=== PATIENT | female | born 1955 | race Caucasian/White ===

== ENCOUNTER 2018-09-14 16:04 | Inpatient (IN) | payer MEDICARE, MEDICAID ==
[~2018-09-14] VITALS: Ht 139.7 cm; Wt 56.2 kg
--- NOTE | 2018-09-14 18:59 | NUR ---
114/61, 103 pulse, 98.1, 21 respirations, 94% on room air, arrived on unit at 1815 via [facility] and [place], denies pain at this time, no signs of distress noted, call light placed in reach, MRSA swab collected at this time, will endorse admission to [employer] operator nurse
[2018-09-14] MEDS ORDERED: Z GUARD REMEDY PASTE 57 GM TUBE TOP PRN (19:00)
[2018-09-14 19:25] VITALS: BP 114/61
[2018-09-14] MEDS ORDERED: LEVO75TA7 PO (20:02)
[2018-09-14] MEDS ORDERED: BENZ1LOZ58 MM (20:02)
[2018-09-14] MEDS ORDERED: CHOL100043 PO (20:02)
[2018-09-14] MEDS ORDERED: ENOX40DI SQ (20:02)
[2018-09-14] MEDS ORDERED: ACET-2154 PO (20:02)
[2018-09-14] MEDS ORDERED: IPRA0.2S6 NEB ×2 (20:02)
[2018-09-14] MEDS ORDERED: BENA10TA9 PO (20:02)
[2018-09-14] MEDS ORDERED: ASPI81TA31 PO (20:02)
[2018-09-14] MEDS ORDERED: ATOR20TA PO (20:02)
[2018-09-14] MEDS ORDERED: PANT40TA2 PO (20:02)
[2018-09-14] MEDS ORDERED: ALBU2.5V13 IH ×2 (20:02)
[2018-09-14] MEDS ORDERED: FLUT1BLS IH (20:02)
[2018-09-14] MEDS ORDERED: DIPH25CA83 PO (20:02)
[2018-09-14] MEDS ORDERED: MAGN400O6 PO (20:02)
[2018-09-14] MEDS ORDERED: SERT25TA PO (20:02)
[2018-09-14] MEDS ORDERED: LINA5TAB PO (20:02)
[2018-09-14] MEDS ORDERED: CALC-494 PO (20:02)
[2018-09-14] MEDS ORDERED: METF-494 PO (20:02)
[2018-09-14] MEDS ORDERED: GLUC1KIT IJ (20:02)
[2018-09-14] MEDS ORDERED: LOPE2CAP40 PO (20:02)
--- NOTE | 2018-09-14 20:05 | NUR ---
Dr. Serrano notified for med recon. verbalized that he will complete it.
[2018-09-14] MEDS ORDERED: DEXTROSE 50% 50 ML DISP.SYRIN IV PRN (20:15)
[2018-09-14 20:20] VITALS: BP 107/57
[2018-09-14] MEDS: BLOOD SUGAR DIAGNOSTIC 1 EACH STRIP VI SCH (21:34)
--- NOTE | 2018-09-14 22:31 | NUR ---
Admitting this 63 y/o female from [facility] under the care of [facility]. Arrived in unit at 1815. Received pt in bed, AAO x 4 watching television. No acute distress noted. Verbally responsive and able to make needs known. Denies pain or discomfort, SOB, CP, N/V. BS checked noted to be 113. Dr. Serrano notified of pt arrival and for med recon to be completed, per MD, will complete via computer. Dr. Daigle made aware of pt arrival. VSS. Routine admission care done. Pictures taken and placed in chart. Belongings list completed. MRSA swab done by AM nurse, swab sent to lab. All safety measures and fall precautions maintained. Call light and all personal belongings within reach. Addendum: 09/14/18 at 2309 by Mart Penaloza RN Will continue to monitor.
[2018-09-14] MEDS ORDERED: LOPERAMIDE HCL 2 MG CAPSULE PO PRN (22:45)
[2018-09-14] MEDS ORDERED: Medication Not On Formulary EA (Diphenhydramine Hcl (Benadryl) 25 MG) PO SCH (22:45)
[2018-09-14] MEDS ORDERED: MAGNESIUM HYDROXIDE 30 ML LIQUID UDC PO PRN (22:45)
[2018-09-15] MEDS: IPRATROPIUM BROMIDE 0.5 MG/2.5 ML NEBU NEB PRN ×2 (01:55→22:19)
[2018-09-15] MEDS: ALBUTEROL SULFATE 2.5 MG/ 0.5 ML NEBU IH PRN (01:56)
[2018-09-15 06:09] VITALS: BP 110/55
[2018-09-15] MEDS: PANTOPRAZOLE SODIUM 40 MG TABLET.DR PO SCH (06:49)
[2018-09-15] MEDS: LEVOTHYROXINE SODIUM 75 MCG TABLET PO SCH (06:50)
[2018-09-15] MEDS: BLOOD SUGAR DIAGNOSTIC 1 EACH STRIP VI SCH ×4 (06:55→20:32)
[2018-09-15 07:15] VITALS: BP 137/67
[2018-09-15] MEDS ORDERED: diphenhydrAMINE 25 MG CAP PO PRN (07:30)
[2018-09-15] MEDS: ALBUTEROL SULFATE 2.5 MG/ 0.5 ML NEBU IH SCH ×5 (07:34→22:20)
[2018-09-15] MEDS: IPRATROPIUM BROMIDE 0.5 MG/2.5 ML NEBU NEB SCH ×4 (07:34→19:56)
[2018-09-15] MEDS ORDERED: FLUTICASONE/VILANTEROL 1 EACH BLST.W.DEV IH SCH (09:00)
[2018-09-15] MEDS ORDERED: Medication Not On Formulary EA (Sertraline Hcl (Zoloft) 12.5 MG) PO SCH (09:00)
[2018-09-15] MEDS: CHOLECALCIFEROL 1,000 UNIT TABLET PO SCH (09:32)
[2018-09-15] MEDS: ASPIRIN 81 MG TAB.CHEW PO SCH (09:32)
[2018-09-15] MEDS: SERTRALINE HCL 50 MG TABLET PO SCH (09:32)
[2018-09-15] MEDS: LINAGLIPTIN 5 MG TABLET PO SCH (09:32)
[2018-09-15] MEDS: BENAZEPRIL HCL 10 MG TABLET PO SCH (09:33)
[2018-09-15] MEDS: FLUTICASONE/VILANTEROL 1 EACH BLST.W.DEV IH SCH (11:38)
[2018-09-15] MEDS: INSULIN REGULAR, HUMAN 300 UNIT/3 ML VIAL SQ PRN ×2 (11:41→16:45)
[2018-09-15] MEDS ORDERED: METF-440 PO (12:36)
--- NOTE | 2018-09-15 14:10 | NUR ---
Received patient, awake, alert x4. Not in any form of distress. With occasional SOB on activity but sating well. Able to ambulate to bathroom. No pain noted. No S/S of hypoglycemia noted. Tolerated diet and medications well.
--- NOTE | 2018-09-15 14:10 | NUR ---
Up with occupational therapy, tolerating well. On room air, tolerating well. No pain noted.
[2018-09-15 15:58] VITALS: BP 93/45
[2018-09-15] MEDS: METFORMIN HCL 500 MG TABLET PO SCH (17:35)
[2018-09-15 19:54] VITALS: BP 95/53
[2018-09-15] MEDS: ATORVASTATIN 20 MG TABLET PO SCH (20:32)
[2018-09-15] MEDS: ENOXAPARIN SODIUM 40 MG/0.4 ML DISP.SYRIN SQ SCH (20:32)
[2018-09-16 06:06] VITALS: BP 135/60
[2018-09-16] MEDS: BLOOD SUGAR DIAGNOSTIC 1 EACH STRIP VI SCH (06:48)
[2018-09-16] MEDS: PANTOPRAZOLE SODIUM 40 MG TABLET.DR PO SCH (06:48)
[2018-09-16] MEDS: LEVOTHYROXINE SODIUM 75 MCG TABLET PO SCH (06:48)
[2018-09-16] MEDS: IPRATROPIUM BROMIDE 0.5 MG/2.5 ML NEBU NEB SCH ×4 (07:15→19:10)
[2018-09-16] MEDS: ALBUTEROL SULFATE 2.5 MG/ 0.5 ML NEBU IH SCH ×4 (07:15→19:10)
[2018-09-16 08:10] VITALS: BP 134/77
--- NOTE | 2018-09-16 09:00 | NUR ---
Received patient awake, alert x 4. On room air, sating well. No SOB or chest pains. No pain noted. No S/S of hypoglycemia. Tolerated diet and medications well.
[2018-09-16] MEDS: LINAGLIPTIN 5 MG TABLET PO SCH (09:18)
[2018-09-16] MEDS: METFORMIN HCL 500 MG TABLET PO SCH ×2 (09:18→17:49)
[2018-09-16] MEDS: CHOLECALCIFEROL 1,000 UNIT TABLET PO SCH (09:18)
[2018-09-16] MEDS: FLUTICASONE/VILANTEROL 1 EACH BLST.W.DEV IH SCH (09:18)
[2018-09-16] MEDS: ASPIRIN 81 MG TAB.CHEW PO SCH (09:18)
[2018-09-16] MEDS: BENAZEPRIL HCL 10 MG TABLET PO SCH (09:19)
[2018-09-16] MEDS: SERTRALINE HCL 50 MG TABLET PO SCH (09:19)
--- NOTE | 2018-09-16 10:36 | NUR ---
Patient up with physical therapy, able to ambulate with front wheel walker. No pain noted. With occasional SOB but sating well above 90s. Seen and examined by Dr. Baugh mentioned to about stable blood sugar levels and said we can d/c Accu-checks
--- NOTE | 2018-09-16 15:26 | NUR ---
INTERDISCIPLINARY TEAM CONFERENCE
[2018-09-16 17:47] VITALS: BP 95/56
--- NOTE | 2018-09-16 19:45 | NUR ---
Patient received in bed. AAO x4. No acute distress or SOB was noted. Able to make needs known. On room air. No complain of pain at this time. Patient assessed. Safety measures maintained, Fall precaution observed, Bed in low position, brake and alarm on, side rails up x2 for safety. Call light and personal belongings within reach. Continue to monitor.
[2018-09-16 21:00] VITALS: BP 112/60
[2018-09-16] MEDS: ATORVASTATIN 20 MG TABLET PO SCH (21:06)
[2018-09-16] MEDS: ENOXAPARIN SODIUM 40 MG/0.4 ML DISP.SYRIN SQ SCH (21:07)
--- NOTE | 2018-09-17 05:20 | NUR ---
End of the shift note Patient was stable throughout the shift and had a good sleep last night. No acute distress or SOB was noted. On room air. No Complain of pain. All due medication given as ordered and well tolerated. Patient assessed. All needs attended promptly. Safety measures maintained, Fall precaution observed, Bed in low position, brake and alarm on, side rails up x2 for safety. Call light and personal belongings within reach. Continue to monitor and will endorse to the oncoming day shift nurse accordingly.
[2018-09-17] MEDS: PANTOPRAZOLE SODIUM 40 MG TABLET.DR PO SCH (06:02)
[2018-09-17] MEDS: LEVOTHYROXINE SODIUM 75 MCG TABLET PO SCH (06:02)
[2018-09-17 06:36] VITALS: BP 95/51
[2018-09-17] MEDS: ALBUTEROL SULFATE 2.5 MG/ 0.5 ML NEBU IH SCH ×4 (07:09→21:08)
[2018-09-17] MEDS: IPRATROPIUM BROMIDE 0.5 MG/2.5 ML NEBU NEB SCH ×4 (07:09→21:08)
[2018-09-17 07:15] VITALS: BP 116/51
[2018-09-17] MEDS: CHOLECALCIFEROL 1,000 UNIT TABLET PO SCH (09:04)
[2018-09-17] MEDS: LINAGLIPTIN 5 MG TABLET PO SCH (09:05)
[2018-09-17] MEDS: SERTRALINE HCL 50 MG TABLET PO SCH (09:05)
[2018-09-17] MEDS: METFORMIN HCL 500 MG TABLET PO SCH (09:05)
[2018-09-17] MEDS: ASPIRIN 81 MG TAB.CHEW PO SCH (09:06)
[2018-09-17] MEDS: BENAZEPRIL HCL 10 MG TABLET PO SCH (09:06)
[2018-09-17] MEDS: FLUTICASONE/VILANTEROL 1 EACH BLST.W.DEV IH SCH (09:08)
--- NOTE | 2018-09-17 12:25 | NUR ---
MD Jones informed regarding discontinue of metformin and tradjenta due to discontinue steroids. Lotensin 10mg also discontinue. agreed.
--- NOTE | 2018-09-17 12:42 | NUR ---
BP medication lotensin discontinue due to low BP. MD aware. will continue monitor
[2018-09-17 16:10] VITALS: BP 96/57
--- NOTE | 2018-09-17 20:02 | NUR ---
resting in bed upon initial rounds. watching TV. in good spirits. needs attended. compliant with care and meds. denies any pain nor any discomfort. VSS. ambulates to the BR with walker with supervision. voiding well. will monitor patient.
[2018-09-17 20:13] VITALS: BP 100/59
[2018-09-17] MEDS: ATORVASTATIN 20 MG TABLET PO SCH (20:26)
[2018-09-17] MEDS: ENOXAPARIN SODIUM 40 MG/0.4 ML DISP.SYRIN SQ SCH (20:29)
[2018-09-18 04:53] VITALS: BP 106/54
[2018-09-18] MEDS: PANTOPRAZOLE SODIUM 40 MG TABLET.DR PO SCH (06:14)
[2018-09-18] MEDS: LEVOTHYROXINE SODIUM 75 MCG TABLET PO SCH (06:14)
--- NOTE | 2018-09-18 06:15 | NUR ---
quiet night. slept well. no acute distress noted. will monitor patient. ambulates to the BR with walker. voiding ok. no BM this shift. VSS. compliant with meds. no complaints presented during shift.
[2018-09-18] MEDS: IPRATROPIUM BROMIDE 0.5 MG/2.5 ML NEBU NEB SCH ×4 (08:02→20:00)
[2018-09-18] MEDS: ALBUTEROL SULFATE 2.5 MG/ 0.5 ML NEBU IH SCH ×4 (08:02→20:00)
[2018-09-18 08:34] VITALS: BP 112/52
[2018-09-18] MEDS: CHOLECALCIFEROL 1,000 UNIT TABLET PO SCH (08:44)
[2018-09-18] MEDS: ASPIRIN 81 MG TAB.CHEW PO SCH (08:45)
[2018-09-18] MEDS: SERTRALINE HCL 50 MG TABLET PO SCH (08:45)
[2018-09-18] MEDS: FLUTICASONE/VILANTEROL 1 EACH BLST.W.DEV IH SCH (08:46)
--- NOTE | 2018-09-18 09:59 | NUR ---
Received pt. on bed, comfortable in no distress. A/OX4 and able to make her needs known. Denies CP or SOB, on RA tolerating well with 92% SpO2. All due medications administered as ordered and tolerated well. All pt. needs attended and met promptly. Safety measures in place. Call light and all frequently used items within pt. reach.
[2018-09-18 16:36] VITALS: BP 122/68
--- NOTE | 2018-09-18 18:41 | NUR ---
End of shift note: No significant change during this shift. All due medications administered as ordered and tolerated well. No sign of acute distress or SOB was noted. LKept pt clean and dry throughout this shift. Safety measures maintained. All needs attended and met promptly. Bed in low position, brake on, side rails up x2 as an enabler. Call light and all frequently used items within pt. reach. Will endorse to next shift accordingly
[2018-09-18 20:10] VITALS: BP 129/73
[2018-09-18] MEDS: ENOXAPARIN SODIUM 40 MG/0.4 ML DISP.SYRIN SQ SCH (20:36)
[2018-09-18] MEDS: ATORVASTATIN 20 MG TABLET PO SCH (20:36)
--- NOTE | 2018-09-18 20:51 | NUR ---
Received pt in bed, AAO x 4 watching television. No acute distress noted. Denies pain or discomfort. Verbally responsive and able to make needs known. Noted with left arm previously present (on admission) scabs that were, per patient, "scratched off without her realizing it." No active bleeding noted. Cleansed with NS, pat dry and two band-aid applied to wounds. Denies pain at site. All safety measures and fall precautions maintained. Call light and all personal belongings within reach. Will continue to monitor. Addendum: 09/18/18 at 2102 by Mart Penaloza RN Picture taken and placed in chart.
[2018-09-19 05:56] VITALS: BP 111/70
[2018-09-19] MEDS: PANTOPRAZOLE SODIUM 40 MG TABLET.DR PO SCH (06:39)
[2018-09-19] MEDS: LEVOTHYROXINE SODIUM 75 MCG TABLET PO SCH (06:39)
[2018-09-19] MEDS: IPRATROPIUM BROMIDE 0.5 MG/2.5 ML NEBU NEB SCH ×4 (07:06→19:48)
[2018-09-19] MEDS: ALBUTEROL SULFATE 2.5 MG/ 0.5 ML NEBU IH SCH ×4 (07:06→19:48)
[2018-09-19 08:27] VITALS: BP 122/56
[2018-09-19] MEDS: ASPIRIN 81 MG TAB.CHEW PO SCH (08:42)
[2018-09-19] MEDS: SERTRALINE HCL 50 MG TABLET PO SCH (08:43)
[2018-09-19] MEDS: CHOLECALCIFEROL 1,000 UNIT TABLET PO SCH (08:43)
[2018-09-19] MEDS: FLUTICASONE/VILANTEROL 1 EACH BLST.W.DEV IH SCH (08:48)
[2018-09-19 16:09] VITALS: BP 119/81
--- NOTE | 2018-09-19 18:33 | NUR ---
Received patient awake in bed in stable condition. no complaint of pain/discomfort noted. not in distress. will continue monitor
--- NOTE | 2018-09-19 19:29 | NUR ---
MD Dawn ordered EKG for tomorrow for tachycardia.
[2018-09-19 19:46] VITALS: BP 136/72
[2018-09-19] MEDS: ATORVASTATIN 20 MG TABLET PO SCH (20:28)
[2018-09-19] MEDS: ENOXAPARIN SODIUM 40 MG/0.4 ML DISP.SYRIN SQ SCH (20:29)
--- NOTE | 2018-09-19 20:35 | NUR ---
Patient has a heart rate ranging from 100 to 110. Patient remained asymptomatic. Checked pulse rate manually, it was 98-100. Based on her order from morning, she had ECG. The result indicated normal sinus rhythm, HR:97, Right bundle branch block. Contacted [facility] on-call. Dr. Bhavani Du was informed. She stated no new order. Continue to monitor.
[2018-09-19] MEDS: IPRATROPIUM BROMIDE 0.5 MG/2.5 ML NEBU NEB PRN (22:59)
[2018-09-19] MEDS: ALBUTEROL SULFATE 2.5 MG/ 0.5 ML NEBU IH PRN (22:59)
[2018-09-20] MEDS: PANTOPRAZOLE SODIUM 40 MG TABLET.DR PO SCH (06:19)
[2018-09-20] MEDS: LEVOTHYROXINE SODIUM 75 MCG TABLET PO SCH (06:20)
[2018-09-20 06:22] VITALS: BP 116/65
[2018-09-20 06:48] LABS: BASOPHILS % (AUTO) 0.6 % (0.0-2.0); EOSINOPHILS # (AUTO) 0.1 K/uL (0.0-0.7); EOSINOPHILS % (AUTO) 1.8 % (0.0-7.0); HEMATOCRIT 28.8 % (31.2-41.9); LYMPHOCYTES # (AUTO) 1.9 K/uL (20.0-40.0); LYMPHOCYTES % (AUTO) 22.5 % (20.5-51.5); MEAN CORPUSCULAR HEMOGLOBIN 22.8 uug (24.7-32.8); MEAN CORPUSCULAR HGB CONC 31 g/dL (32.3-35.6); MEAN CORPUSCULAR VOLUME 73.4 fL (75.5-95.3); MONOCYTES # (AUTO) 1.2 K/uL (2.0-10.0); NEUTROPHILS # (AUTO) 5.1 K/uL (1.8-8.9); NEUTROPHILS % (AUTO) 61.1 % (38.5-71.5); PLATELET COUNT (AUTO) 477 K/uL (179-408); RED BLOOD CELL COUNT(AUTO) 3.93 MIL/uL (3.63-4.92); WHITE BLOOD COUNT (AUTO) 8.3 K/uL (3.8-11.8)
[2018-09-20 06:54] LABS: CREATININE 0.7 mg/dL (0.6-1.3); MAGNESIUM 2.1 mg/dL (1.8-2.4); PHOSPHOROUS 3.6 mg/dL (2.5-4.9); POTASSIUM 3.9 mmol/L (3.5-5.1)
--- NOTE | 2018-09-20 07:10 | NUR ---
Received patient awake, alert and oriented, in bed on a high shields's position, no SOB or distress. Denies any pain or discomforts at this time. Safety precautions initiated. call light and telephone within reach. Encouraged to use call light whenever assistance is needed. informed about hourly rounding. Will continue to monitor.
[2018-09-20] MEDS: IPRATROPIUM BROMIDE 0.5 MG/2.5 ML NEBU NEB SCH ×4 (07:12→20:12)
[2018-09-20] MEDS: ALBUTEROL SULFATE 2.5 MG/ 0.5 ML NEBU IH SCH ×4 (07:12→20:12)
[2018-09-20 07:34] LABS: EOSINOPHILS % (MANUAL) 1 % (0-8); LYMPHOCYTES % (MANUAL) 21 % (20-40); MONOCYTES % (MANUAL) 11 % (2-10); NEUTROPHILS % (MANUAL) 67 % (42-75)
[2018-09-20 08:30] VITALS: BP 106/58
[2018-09-20] MEDS: CHOLECALCIFEROL 1,000 UNIT TABLET PO SCH (08:49)
[2018-09-20] MEDS: ASPIRIN 81 MG TAB.CHEW PO SCH (08:49)
[2018-09-20] MEDS: SERTRALINE HCL 50 MG TABLET PO SCH (08:49)
[2018-09-20] MEDS: FLUTICASONE/VILANTEROL 1 EACH BLST.W.DEV IH SCH (08:50)
--- NOTE | 2018-09-20 13:15 | NUR ---
called Dr. Baugh, relayed to Md the EKG result: Normal sinus rhythm right bundle branch block, abnormal ECG. Per dr. Baugh no new orders. Patient made aware. Will continue to monitor
[2018-09-20 16:25] VITALS: BP 120/62
--- NOTE | 2018-09-20 17:45 | NUR ---
Nurse Notes; Patient alert and oriented x 4, no changes in LOC or mentation. No SOB or distress. Dr. Buagh informed of the EKG and elevated heart rate with no new orders at this time. Will continue to monitor per MD. All due medications were given. Assessed for pain, patient denies any pain or discomforts. Patient able to participate with the scheduled therapy. safety precautions observed. hourly rounding done. Call light and telephone within reach at all times. call light answered promptly. Will continue to monitor. Will endorse accordingly to next shift fro continuity of care.
[2018-09-20 19:45] VITALS: BP 112/65
[2018-09-20] MEDS: ATORVASTATIN 20 MG TABLET PO SCH (20:34)
[2018-09-20] MEDS: ENOXAPARIN SODIUM 40 MG/0.4 ML DISP.SYRIN SQ SCH (20:36)
--- NOTE | 2018-09-20 22:28 | NUR ---
resting in bed at initial rounds. aao x4 OOB to the BR with walker. gait steady. needs attended. VSS HR 99 no acute distress noted. denies any chestpain nor any chest discomfort. will monitor patient. compliant with meds. respiratory treatments given by therapist. no SOB noted. fall precautions maintained.
[2018-09-21 05:40] VITALS: BP 98/51
[2018-09-21] MEDS: LEVOTHYROXINE SODIUM 75 MCG TABLET PO SCH (06:31)
[2018-09-21] MEDS: PANTOPRAZOLE SODIUM 40 MG TABLET.DR PO SCH (06:31)
[2018-09-21 07:00] VITALS: BP 134/75
[2018-09-21] MEDS: IPRATROPIUM BROMIDE 0.5 MG/2.5 ML NEBU NEB SCH ×4 (07:43→19:30)
[2018-09-21] MEDS: ALBUTEROL SULFATE 2.5 MG/ 0.5 ML NEBU IH SCH ×4 (07:43→19:30)
[2018-09-21] MEDS: ASPIRIN 81 MG TAB.CHEW PO SCH (09:13)
[2018-09-21] MEDS: CHOLECALCIFEROL 1,000 UNIT TABLET PO SCH (09:13)
[2018-09-21] MEDS: SERTRALINE HCL 50 MG TABLET PO SCH (09:14)
[2018-09-21] MEDS: FLUTICASONE/VILANTEROL 1 EACH BLST.W.DEV IH SCH (09:15)
--- NOTE | 2018-09-21 09:30 | NUR ---
Patient awake, alert, not in any form of acute distress. She denies any pain or discomfort at this time. Due medications administered and tolerated well. Assisted with her needs. Call light and frequently used items placed within reach.
[2018-09-21] MEDS: ACETAMINOPHEN 325 MG TABLET PO PRN ×2 (14:21→20:48)
[2018-09-21 16:02] VITALS: BP 120/74
[2018-09-21 19:40] VITALS: BP 144/79
--- NOTE | 2018-09-21 20:17 | NUR ---
aaox4 ambulates to the BR with walker. voiding well. SOB noted on exertion. respiratory treatments given as scheduled. VSS.needs attended. will monitor patient. denies any pain nor any discomfort.
[2018-09-21] MEDS: ATORVASTATIN 20 MG TABLET PO SCH (20:48)
[2018-09-21] MEDS: ENOXAPARIN SODIUM 40 MG/0.4 ML DISP.SYRIN SQ SCH (20:51)
[2018-09-21] MEDS: ALBUTEROL SULFATE 2.5 MG/ 0.5 ML NEBU IH PRN (22:57)
[2018-09-21] MEDS: IPRATROPIUM BROMIDE 0.5 MG/2.5 ML NEBU NEB PRN (22:57)
[2018-09-22 06:00] VITALS: BP 96/57
--- NOTE | 2018-09-22 06:17 | NUR ---
slept well most of the shift. no signs of respiratory distress noted. respiratory treatments given by therapist as scheduled. VSS. denies any pain nor any discomfort. voiding well in the BR. SOB noted on exertion. VSS.
[2018-09-22] MEDS: PANTOPRAZOLE SODIUM 40 MG TABLET.DR PO SCH (06:26)
[2018-09-22] MEDS: LEVOTHYROXINE SODIUM 75 MCG TABLET PO SCH (06:26)
[2018-09-22 07:00] VITALS: BP 135/79
[2018-09-22] MEDS: IPRATROPIUM BROMIDE 0.5 MG/2.5 ML NEBU NEB SCH ×4 (07:19→19:40)
[2018-09-22] MEDS: ALBUTEROL SULFATE 2.5 MG/ 0.5 ML NEBU IH SCH ×4 (07:19→19:41)
[2018-09-22] MEDS: CHOLECALCIFEROL 1,000 UNIT TABLET PO SCH (08:29)
[2018-09-22] MEDS: FLUTICASONE/VILANTEROL 1 EACH BLST.W.DEV IH SCH (08:29)
[2018-09-22] MEDS: ASPIRIN 81 MG TAB.CHEW PO SCH (08:29)
[2018-09-22] MEDS: SERTRALINE HCL 50 MG TABLET PO SCH (08:30)
--- NOTE | 2018-09-22 09:35 | NUR ---
Received pt. on bed, comfortable in no distress. A/OX4 and able to make her needs known. Denies CP or SOB, on RA tolerating well with 100% SpO2. All due medications administered as ordered and tolerated well. All pt. needs attended and met promptly. Safety measures in place. Call light and all frequently used items within pt. reach.
--- NOTE | 2018-09-22 19:41 | NUR ---
End of shift note: No significant change during this shift. All due medications administered as ordered and tolerated well. No sign of acute distress or SOB was noted. Kept pt clean and dry throughout this shift. Safety measures maintained. All needs attended and met promptly. Bed in low position, brake on, side rails up x2 as an enabler. Call light and all frequently used items within pt. reach. Will endorse to next shift accordingly
[2018-09-22 20:15] VITALS: BP 138/63
[2018-09-22] MEDS: ATORVASTATIN 20 MG TABLET PO SCH (20:22)
[2018-09-22] MEDS: ENOXAPARIN SODIUM 40 MG/0.4 ML DISP.SYRIN SQ SCH (20:24)
--- NOTE | 2018-09-23 00:52 | NUR ---
aaox4 ambulates to the BR with walker. SOB noted on exertion. VSS. Needs attended. respiratory treatments given as ordered. No respiratory distress noted. Kept comfortable. On Lovenox for VTE. Tolerated po meds well. Compliant with care. Will monitor patient. Denies any pain nor any discomfort.
[2018-09-23 04:57] VITALS: BP 110/63
[2018-09-23] MEDS: PANTOPRAZOLE SODIUM 40 MG TABLET.DR PO SCH (06:14)
[2018-09-23] MEDS: LEVOTHYROXINE SODIUM 75 MCG TABLET PO SCH (06:14)
[2018-09-23] MEDS: IPRATROPIUM BROMIDE 0.5 MG/2.5 ML NEBU NEB SCH ×4 (07:27→19:10)
[2018-09-23] MEDS: ALBUTEROL SULFATE 2.5 MG/ 0.5 ML NEBU IH SCH ×4 (07:27→19:10)
[2018-09-23 08:00] VITALS: BP 125/59
[2018-09-23] MEDS: ASPIRIN 81 MG TAB.CHEW PO SCH (09:00)
[2018-09-23] MEDS: FLUTICASONE/VILANTEROL 1 EACH BLST.W.DEV IH SCH (09:00)
[2018-09-23] MEDS: CHOLECALCIFEROL 1,000 UNIT TABLET PO SCH (09:00)
[2018-09-23] MEDS: SERTRALINE HCL 50 MG TABLET PO SCH (09:01)
--- NOTE | 2018-09-23 12:48 | NUR ---
INTERDISCIPLINARY TEAM CONFERENCE
[2018-09-23 16:00] VITALS: BP 128/62
--- NOTE | 2018-09-23 19:40 | NUR ---
Received patient awake and alert in bed. No signs of acute distress noted. No complaints of pain or SOB. Safety measures initiated. Bed is low and locked, call light within reach. Will continue to monitor.
[2018-09-23] MEDS: ATORVASTATIN 20 MG TABLET PO SCH (20:54)
[2018-09-23] MEDS: ENOXAPARIN SODIUM 40 MG/0.4 ML DISP.SYRIN SQ SCH (20:54)
[2018-09-23 20:59] VITALS: BP 119/68
[2018-09-24] MEDS: PANTOPRAZOLE SODIUM 40 MG TABLET.DR PO SCH (06:06)
[2018-09-24] MEDS: LEVOTHYROXINE SODIUM 75 MCG TABLET PO SCH (06:06)
[2018-09-24 06:07] VITALS: BP 123/72
--- NOTE | 2018-09-24 06:45 | NUR ---
Patient slept well throughout shift. No acute distress noted. Patient ambulated to restroom with walker with a steady gait. Medications given as ordered. All needs were met. Patient will be going home today. Safety measures given. Will endorse to next shift.
[2018-09-24 08:08] VITALS: BP 127/67
[2018-09-24] MEDS: ALBUTEROL SULFATE 2.5 MG/ 0.5 ML NEBU IH SCH ×2 (08:40→12:07)
[2018-09-24] MEDS: IPRATROPIUM BROMIDE 0.5 MG/2.5 ML NEBU NEB SCH ×2 (08:40→12:07)
[2018-09-24] MEDS: CHOLECALCIFEROL 1,000 UNIT TABLET PO SCH (09:45)
[2018-09-24] MEDS: SERTRALINE HCL 50 MG TABLET PO SCH (09:45)
[2018-09-24] MEDS: ASPIRIN 81 MG TAB.CHEW PO SCH (09:45)
[2018-09-24] MEDS: FLUTICASONE/VILANTEROL 1 EACH BLST.W.DEV IH SCH (09:46)
--- NOTE | 2018-09-24 13:15 | NUR ---
D/C INSTRUCTIONS EXPLAINED TO HER. VERBALIZED UNDERSTANDING. MEDS FAXED TO HER PHARMACY OF CHOICE. D/C PICS TAKEN. D/C ORDER ON FILE. LEFT WITH HER BROTHER. SHE LEFT WITH HER WALKER AND CANE
== END 2018-09-24 13:30 | disposition home health service (06) | DRG 190 ==
PROVIDERS: ADMIT Physical Medicine & Rehabilitation Pain Medicine; ATTEND Physical Medicine & Rehabilitation Pain Medicine
DX: J44.1 Chronic obstructive pulmonary disease with (acute) exacerbation (principal); J96.21 Acute and chronic respiratory failure with hypoxia; B37.0 Candidal stomatitis; E03.9 Hypothyroidism, unspecified; E11.65 Type 2 diabetes mellitus with hyperglycemia; E78.5 Hyperlipidemia, unspecified; Z87.891 Personal history of nicotine dependence; Z99.81 Dependence on supplemental oxygen; R53.1 Weakness; F41.9 Anxiety disorder, unspecified; I10 Essential (primary) hypertension; I25.10 Atherosclerotic heart disease of native coronary artery without angina pectoris; K21.9 Gastro-esophageal reflux disease without esophagitis; Z79.52 Long term (current) use of systemic steroids; Z83.3 Family history of diabetes mellitus; Q63.1 Lobulated, fused and horseshoe kidney
CPT/HCPCS: 36415; 71045; 83735; 84100; 85025; 92523; 92526; 92610; 93005; 94640; 94664; 97110; 97112; 97116; 97165; 97530; 97535; J1650; J1815; J3590